=== PATIENT | female | born 1980 | race Caucasian/White ===

== ENCOUNTER 2016-12-26 16:00 | Emergency (ER) | payer OTHER ==
[2016-12-26 16:56] LABS: BASOPHIL 0.6 % (0-2); EOSINOPHIL 8.6 % (0-5); HCT 40.6 % (37.0-47.0); HGB 13.8 g/dl (12.5-16.0); LYMPHOCYTE 38.2 % (15-48); MCH 31.6 pg (25.0-31.0); MCV 92.9 fL (78.0-100.0); MONOCYTE 8.8 % (0-12); NEUTROPHIL 43.8 % (41-80); PLT 285 K/uL (150-400); RBC 4.37 M/uL (4.20-5.40); WBC 8.6 K/uL (4.0-10.5)
[2016-12-26 16:57] LABS: BILIRUBIN NEGATIVE (NEGATIVE); BLOOD NEGATIVE Ery/uL (NEGATIVE); CLARITY CLEAR (CLEAR); COLOR YELLOW (YELLOW); GLUCOSE (U) NORMAL (NORMAL); KETONE (U) NEGATIVE (NEGATIVE); LEUKOCYTES NEGATIVE Leu/uL (NEGATIVE); NITRITE POSITIVE (NEGATIVE); PROTEIN NEGATIVE (NEGATIVE); SPECIFIC GRAVITY 1.025 (1.001-1.030); UROBILINOGEN 0.2 mg/dL (0.2-1.0); pH 5.5 (5.0-9.0)
[2016-12-26 17:05] LABS: BACTERIA 2+; SQUAMOUS EPITHELIAL CELLS RARE
[2016-12-26 17:40] LABS: CREATININE 0.6 mg/dL (0.5-1.0); POTASSIUM 3.8 mmol/L (3.5-5.1)
== END 2016-12-26 18:26 | disposition home or self-care (01) ==
LOC: FER 16:00
PROVIDERS: Emergency Medicine
DX: N30.00 Acute cystitis without hematuria (principal); F32.9 Major depressive disorder, single episode, unspecified; F17.210 Nicotine dependence, cigarettes, uncomplicated; Z87.442 Personal history of urinary calculi
CPT/HCPCS: 36415; 80048; 81001; 85025; J2270; J2405

== ENCOUNTER 2017-01-18 15:05 | Emergency (ER) | payer OTHER ==
[2017-01-18 17:16] LABS: BASOPHIL 0.1 % (0-2); EOSINOPHIL 0.3 % (0-5); HCT 41.6 % (37.0-47.0); LYMPHOCYTE 23.1 % (15-48); MCH 31.6 pg (25.0-31.0); MCHC 33.7 g/dL (32.0-36.0); MCV 93.9 fL (78.0-100.0); MONOCYTE 8.1 % (0-12); MPV 8.4 fL (6.0-9.5); NEUTROPHIL 68.4 % (41-80); PLT 361 K/uL (150-400); RBC 4.43 M/uL (4.20-5.40); RDW 12.3 % (11.5-14.0); WBC 13.9 K/uL (4.0-10.5)
[2017-01-18 17:17] LABS: BILIRUBIN NEGATIVE (NEGATIVE); BLOOD NEGATIVE Ery/uL (NEGATIVE); CLARITY CLEAR (CLEAR); COLOR YELLOW (YELLOW); GLUCOSE (U) NORMAL (NORMAL); KETONE (U) NEGATIVE (NEGATIVE); LEUKOCYTES NEGATIVE Leu/uL (NEGATIVE); NITRITE NEGATIVE (NEGATIVE); PROTEIN NEGATIVE (NEGATIVE); SPECIFIC GRAVITY <=1.005 (1.001-1.030); UROBILINOGEN 0.2 mg/dL (0.2-1.0)
[2017-01-18 17:37] LABS: ALBUMIN 4.4 g/dL (3.5-5.0); BILIRUBIN - TOTAL 0.2 mg/dL (0.1-1.0); CREATININE 0.6 mg/dL (0.5-1.0); GLOBULIN (CALCULATION) 2.5 g/dL (2.2-4.2); POTASSIUM 3.8 mmol/L (3.5-5.1); TOTAL PROTEIN 6.9 g/dL (6.4-8.3)
== END 2017-01-18 20:20 | disposition home or self-care (01) ==
LOC: FER 15:05
PROVIDERS: Nurse Practitioner Family
DX: R10.84 Generalized abdominal pain (principal); M54.5 Low back pain; R11.0 Nausea; F41.9 Anxiety disorder, unspecified; F32.9 Major depressive disorder, single episode, unspecified; Z87.442 Personal history of urinary calculi; Z90.49 Acquired absence of other specified parts of digestive tract; Z79.51 Long term (current) use of inhaled steroids; Z79.1 Long term (current) use of non-steroidal anti-inflammatories (NSAID); Z79.899 Other long term (current) drug therapy
CPT/HCPCS: 36415; 80053; 81003; 85025; 85651; J1170; J2175; J2405

== ENCOUNTER 2017-03-06 02:44 | Emergency (ER) | payer OTHER ==
[2017-03-06 05:24] LABS: BILIRUBIN NEGATIVE (NEGATIVE); BLOOD NEGATIVE Ery/uL (NEGATIVE); CLARITY CLEAR (CLEAR); COLOR STRAW (YELLOW); GLUCOSE (U) NORMAL (NORMAL); KETONE (U) NEGATIVE (NEGATIVE); LEUKOCYTES 1+ Leu/uL (NEGATIVE); NITRITE NEGATIVE (NEGATIVE); PROTEIN NEGATIVE (NEGATIVE); SPECIFIC GRAVITY <=1.005 (1.001-1.030); UROBILINOGEN 0.2 mg/dL (0.2-1.0)
[2017-03-06 05:32] LABS: BACTERIA TRACE; MUCOUS TRACE; SQUAMOUS EPITHELIAL CELLS 20-50
== END 2017-03-06 06:00 | disposition home or self-care (01) ==
LOC: FER 02:44
PROVIDERS: Emergency Medicine
DX: R55 Syncope and collapse (principal); S30.0XXA Contusion of lower back and pelvis, initial encounter; R51 Headache; F32.9 Major depressive disorder, single episode, unspecified; Z79.899 Other long term (current) drug therapy
CPT/HCPCS: 72170; 81001; 93005

== ENCOUNTER 2020-11-18 14:34 | Emergency (ER) | payer OTHER ==
[~2020-11-18 14:34] MED LIST: BENTYL10 MG PO; CIPRO500 MG PO; DIAZEPAM 2MG TAB2 MG PO; EFFEXOR XR37.5 MG PO; FIORICET1 EACH PO; LAMICTAL100 MG PO; MACROBID100 MG PO; MOTRIN600 MG PO; PEPCID AC20 MG PO; PERCOCET 5-3251 EACH PO; QUETIAPINE FUM200 MG PO; SEROQUEL XR200 MG PO; ZOFRAN ODT4 MG SL; ZOFRAN4 MG PO; ZOFRAN8 MG PO
== END 2020-11-18 15:00 | disposition left against medical advice (07) ==
LOC: FER 14:34
DX: Z53.8 Procedure and treatment not carried out for other reasons (principal)

== ENCOUNTER 2020-11-22 17:37 | Emergency (ER) | payer OTHER ==
[2020-11-22 18:21] LABS: BASOPHIL 0.6 % (0-2); EOSINOPHIL 1.3 % (0-5); HCT 45.1 % (37.0-47.0); LYMPHOCYTE 46.9 % (15-48); MCHC 33.3 g/dL (32.0-36.0); MCV 93.2 fL (78.0-100.0); MONOCYTE 7.3 % (0-12); NEUTROPHIL 43.8 % (41-80); NRBC 0; PLT 308 K/uL (150-400); RBC 4.84 M/uL (4.20-5.40); WBC 7.1 K/uL (4.0-10.5)
[2020-11-22 18:22] LABS: BILIRUBIN 2+ mg/dL (NEGATIVE); BLOOD TRACE-INTACT Ery/uL (NEGATIVE); CLARITY HAZY (CLEAR); COLOR ORANGE (YELLOW); GLUCOSE (U) NORMAL (NORMAL); LEUKOCYTES 1+ Leu/uL (NEGATIVE); NITRITE POSITIVE (NEGATIVE); PROTEIN TRACE (LOW) mg/dL (NEGATIVE); SPECIFIC GRAVITY >=1.030 (1.001-1.030); UROBILINOGEN 0.2 mg/dL (0.2-1.0); pH 5.5 (5.0-9.0)
[2020-11-22 18:29] LABS: BACTERIA 3+; URINARY RBC RARE; URINARY WBC TNTC
[2020-11-22 18:30] LABS: MUCOUS LARGE
[2020-11-22 18:41] LABS: ALBUMIN 4.3 g/dL (3.4-5.0); BILIRUBIN - TOTAL 0.3 mg/dL (0.2-1.0); BUN/CREAT RATIO (CALC) 12.8 RATIO; CREATININE 0.78 mg/dL (0.51-0.95); GLOBULIN (CALCULATION) 3.8 g/dL; POTASSIUM 3.4 mmol/L (3.5-5.1); TOTAL PROTEIN 8.1 g/dL (6.4-8.2)
[2020-11-22 18:46] LABS: LACTIC ACID 1.1 mmol/L (0.4-1.9)
[2020-11-22] MEDS ORDERED: BACTRIM DS TAB1 EACH PO (20:30)
[2020-11-22] MEDS ORDERED: NORCO 5-325 TA1 EACH PO (20:30)
== END 2020-11-22 21:39 | disposition home or self-care (01) ==
LOC: FER 17:37
PROVIDERS: Emergency Medicine
DX: N10 Acute pyelonephritis (principal); E66.9 Obesity, unspecified; Z88.5 Allergy status to narcotic agent; Z87.442 Personal history of urinary calculi; Z90.49 Acquired absence of other specified parts of digestive tract; Z90.710 Acquired absence of both cervix and uterus
CPT/HCPCS: 36415; 80053; 81001; 83605; 83690; 85025; 87040; 87088; J0696; J1170; J1885; J2405; J7030; Q9967

== ENCOUNTER 2020-12-10 16:13 | Emergency (ER) | payer OTHER ==
[~2020-12-10 16:13] MED LIST changes: +BACTRIM DS TAB1 EACH PO; +NORCO 5-325 TA1 EACH PO
== END 2020-12-10 18:00 | disposition left against medical advice (07) ==
LOC: FER 16:13
DX: Z53.8 Procedure and treatment not carried out for other reasons (principal)

== ENCOUNTER 2020-12-13 08:34 | Emergency (ER) | payer OTHER ==
[2020-12-13 10:31] LABS: BASOPHIL 0.7 % (0-2); EOSINOPHIL 1.5 % (0-5); HCT 47.4 % (37.0-47.0); HGB 15.8 g/dl (12.5-16.0); MCHC 33.3 g/dL (32.0-36.0); MCV 92.9 fL (78.0-100.0); MONOCYTE 6.2 % (0-12); MPV 8.9 fL (6.0-9.5); NEUTROPHIL 56.6 % (41-80); NRBC 0; PLT 284 K/uL (150-400); RDW 11.8 % (11.5-14.0); WBC 5.8 K/uL (4.0-10.5)
[2020-12-13 10:50] LABS: ALBUMIN 4.2 g/dL (3.4-5.0); BILIRUBIN - TOTAL 0.4 mg/dL (0.2-1.0); BUN/CREAT RATIO (CALC) 17.2 RATIO; CREATININE 0.87 mg/dL (0.51-0.95); GLOBULIN (CALCULATION) 3.9 g/dL; POTASSIUM 4.3 mmol/L (3.5-5.1); TOTAL PROTEIN 8.1 g/dL (6.4-8.2)
[2020-12-13] MEDS ORDERED: NORCO 5-325 TA1 EACH PO (11:54)
[2020-12-13] MEDS ORDERED: MEDROL 4MG DOSEP4 MG PO (11:54)
[2020-12-13] MEDS ORDERED: ROBAXIN750 MG PO (11:54)
== END 2020-12-13 12:18 | disposition home or self-care (01) ==
LOC: FER 08:34
PROVIDERS: Emergency Medicine
DX: S06.0X9A Concussion with loss of consciousness of unspecified duration, initial encounter (principal); M51.26 Other intervertebral disc displacement, lumbar region; Z88.5 Allergy status to narcotic agent; W00.0XXA Fall on same level due to ice and snow, initial encounter; Y92.009 Unspecified place in unspecified non-institutional (private) residence as the place of occurrence of the external cause
CPT/HCPCS: 36415; 70450; 72131; 80053; 85025; J1170; J1885; J2405; J7030

== ENCOUNTER 2021-04-20 15:21 | Emergency (ER) | payer OTHER ==
[~2021-04-20 15:21] MED LIST changes: +MEDROL 4MG DOSEP4 MG PO; +ROBAXIN750 MG PO
[2021-04-20 17:50] LABS: BILIRUBIN NEGATIVE (NEGATIVE); BLOOD NEGATIVE Ery/uL (NEGATIVE); CLARITY CLEAR (CLEAR); COLOR YELLOW (YELLOW); GLUCOSE (U) NORMAL (NORMAL); LEUKOCYTES 2+ Leu/uL (NEGATIVE); NITRITE NEGATIVE (NEGATIVE); PROTEIN NEGATIVE (NEGATIVE); SPECIFIC GRAVITY 1.025 (1.001-1.030); UROBILINOGEN 0.2 mg/dL (0.2-1.0)
[2021-04-20 17:55] LABS: URINARY WBC 20-50
[2021-04-20 17:56] LABS: BACTERIA 1+; URINARY RBC RARE
[2021-04-20 18:04] LABS: BASOPHIL 0.7 % (0-2); EOSINOPHIL 1.2 % (0-5); HCT 38.7 % (37.0-47.0); HGB 12.9 g/dl (12.5-16.0); LYMPHOCYTE 36.6 % (15-48); MCH 31.4 pg (25.0-31.0); MCHC 33.3 g/dL (32.0-36.0); MCV 94.2 fL (78.0-100.0); MONOCYTE 8.1 % (0-12); MPV 8.8 fL (6.0-9.5); NEUTROPHIL 53.2 % (41-80); NRBC 0; PLT 297 K/uL (150-400); RBC 4.11 M/uL (4.20-5.40); RDW 11.7 % (11.5-14.0); WBC 10.3 K/uL (4.0-10.5)
[2021-04-20 18:44] LABS: ALBUMIN 3.7 g/dL (3.4-5.0); BILIRUBIN - TOTAL 0.3 mg/dL (0.2-1.0); BUN/CREAT RATIO (CALC) 31.7 RATIO; CREATININE 0.82 mg/dL (0.51-0.95); GLOBULIN (CALCULATION) 3.7 g/dL; POTASSIUM 4.1 mmol/L (3.5-5.1); TOTAL PROTEIN 7.4 g/dL (6.4-8.2)
[2021-04-20] MEDS ORDERED: AUGMENTIN 875-1 EACH PO (19:11)
== END 2021-04-20 19:05 | disposition home or self-care (01) ==
LOC: FER 15:21
PROVIDERS: Emergency Medicine
DX: N39.0 Urinary tract infection, site not specified (principal); K59.00 Constipation, unspecified; Z87.442 Personal history of urinary calculi; Z90.49 Acquired absence of other specified parts of digestive tract; Z90.710 Acquired absence of both cervix and uterus; Z88.5 Allergy status to narcotic agent
CPT/HCPCS: 36415; 80053; 81001; 83690; 85025; 87088

== ENCOUNTER 2021-05-25 16:48 | Emergency (ER) | payer OTHER ==
[~2021-05-25 16:48] MED LIST changes: +AUGMENTIN 875-1 EACH PO
[2021-05-25 18:59] LABS: BASOPHIL 0.2 % (0-2); EOSINOPHIL 0.2 % (0-5); HCT 44.6 % (37.0-47.0); HGB 14.8 g/dl (12.5-16.0); LYMPHOCYTE 31.4 % (15-48); MCH 30.6 pg (25.0-31.0); MCHC 33.2 g/dL (32.0-36.0); MCV 92.1 fL (78.0-100.0); MONOCYTE 6.2 % (0-12); MPV 8.3 fL (6.0-9.5); NEUTROPHIL 61.8 % (41-80); NRBC 0; PLT 193 K/uL (150-400); RBC 4.84 M/uL (4.20-5.40); RDW 11.9 % (11.5-14.0); WBC 4.8 K/uL (4.0-10.5)
[2021-05-25 19:29] LABS: BUN/CREAT RATIO (CALC) 18.4 RATIO; CREATININE 0.76 mg/dL (0.51-0.95); POTASSIUM 3.8 mmol/L (3.5-5.1)
[2021-05-25 20:23] LABS: BILIRUBIN NEGATIVE (NEGATIVE); BLOOD NEGATIVE Ery/uL (NEGATIVE); CLARITY CLEAR (CLEAR); COLOR YELLOW (YELLOW); GLUCOSE (U) NORMAL (NORMAL); LEUKOCYTES TRACE Leu/uL (NEGATIVE); NITRITE NEGATIVE (NEGATIVE); PROTEIN TRACE (LOW) mg/dL (NEGATIVE); SPECIFIC GRAVITY >=1.030 (1.001-1.030); UROBILINOGEN 0.2 mg/dL (0.2-1.0)
[2021-05-25 20:44] LABS: BACTERIA TRACE
== END 2021-05-25 20:49 | disposition home or self-care (01) ==
LOC: FER 16:48
PROVIDERS: Nurse Practitioner Family
DX: U07.1 COVID-19 (principal); G43.909 Migraine, unspecified, not intractable, without status migrainosus; R00.0 Tachycardia, unspecified; Z88.5 Allergy status to narcotic agent; Z88.6 Allergy status to analgesic agent
CPT/HCPCS: 36415; 71045; 80048; 81001; 84484; 85025; 87088; 93005; 94640; J1100; J1885; J2405; J7030

== ENCOUNTER 2021-10-04 09:33 | Emergency (ER) | payer OTHER ==
[2021-10-04 10:28] LABS: BILIRUBIN NEGATIVE (NEGATIVE); BLOOD NEGATIVE Ery/uL (NEGATIVE); CLARITY CLEAR (CLEAR); COLOR YELLOW (YELLOW); GLUCOSE (U) NORMAL (NORMAL); LEUKOCYTES 1+ Leu/uL (NEGATIVE); NITRITE NEGATIVE (NEGATIVE); PROTEIN NEGATIVE (NEGATIVE); SPECIFIC GRAVITY >=1.030 (1.001-1.030); UROBILINOGEN 0.2 mg/dL (0.2-1.0)
[2021-10-04 10:49] LABS: BACTERIA 1+
== END 2021-10-04 11:41 | disposition left against medical advice (07) ==
LOC: FER 09:33
PROVIDERS: Emergency Medicine
DX: R11.0 Nausea (principal); Z53.21 Procedure and treatment not carried out due to patient leaving prior to being seen by health care provider
CPT/HCPCS: 81001

== ENCOUNTER 2022-04-25 10:24 | Emergency (ER) | payer OTHER ==
[2022-04-25 11:51] LABS: BILIRUBIN 1+ mg/dL (NEGATIVE); BLOOD 3+ Ery/uL (NEGATIVE); CLARITY HAZY (CLEAR); COLOR YELLOW (YELLOW); GLUCOSE (U) NORMAL (NORMAL); LEUKOCYTES TRACE Leu/uL (NEGATIVE); NITRITE NEGATIVE (NEGATIVE); PROTEIN 1+ mg/dL (NEGATIVE); SPECIFIC GRAVITY >=1.030 (1.001-1.030)
[2022-04-25 12:06] LABS: URINARY RBC TNTC
== END 2022-04-25 12:07 | disposition left against medical advice (07) ==
LOC: FER 10:24
PROVIDERS: Emergency Medicine
DX: R10.31 Right lower quadrant pain (principal); R31.9 Hematuria, unspecified; Z53.29 Procedure and treatment not carried out because of patient's decision for other reasons; Z88.5 Allergy status to narcotic agent
CPT/HCPCS: 81001; 99281